=== PATIENT | male | born 1945 | race Caucasian/White ===

== ENCOUNTER 2017-01-13 08:32 | Day surgery (SDC) | payer MEDICARE, BC ==
--- NOTE | ~2017-01-13 | EGD ---
EGD REPORT [facility] [address] [id number] NAME: ZORA SIERRA : [birth year] STATUS : REG [facility]#: [id number] AGE: 72 ADM/REG DATE : 01/13/17 MR#: [id number] REPORT SERV DATE: 01/13/17 DICTATED BY: DATE: REPORT STATUS : Draft TRANSCRIBED BY: [employer] DATE: 01/13/17 [facility] Patient Name: Zora Sierra Date of : 1945 Attending MD: ANIBAL ROGERS MD Procedure Date No Time: 01/13/2017 Procedure: Colonoscopy Indications: High risk colon CA surveillance: Personal history multiple (3 or more) adenomas Referring MD: MARY CHARLES Medicines: Monitored Anesthesia Care Complications: No immediate complications. Procedure: Pre-Anesthesia Assessment: - ASA Grade Assessment: III - A patient with severe systemic disease. After I obtained informed consent, the scope was passed under direct vision. Throughout the procedure, the patient's blood pressure, pulse, and oxygen saturations were monitored continuously. The PCF [id number] was introduced through the anus and advanced to the cecum, identified by appendiceal orifice and ileocecal valve. The colonoscopy was performed without difficulty. The patient tolerated the procedure well. The quality of the bowel preparation was good. Findings: The perianal and digital rectal examinations were normal. Multiple small and large-mouthed diverticula were found in the sigmoid colon and in the descending colon. A sessile polyp was found in the cecum. The polyp was small in size. The polyp was removed with a cold snare. Resection and retrieval were complete. A sessile polyp was found in the ascending colon. The polyp was small in size. The polyp was removed with a cold snare. Resection and retrieval were complete. A sessile polyp was found in the distal transverse colon. The polyp was small in size. The polyp was removed with a cold snare. Resection and retrieval were complete. Two sessile polyps were found in the rectum. The polyps were small in size. These polyps were removed with a cold snare. Resection and retrieval were complete. No other significant abnormalities were identified in a careful examination of the remainder of the colon. There is no endoscopic evidence of inflammation, mass, ulcerations or angioectasia in the entire colon. EGD REPORT [place] [id number] [facility] [place]. [address] NAME: ZORA SIERRA : [birth year] STATUS : REG [facility]#: [id number] AGE: 72 ADM/REG DATE : 01/13/17 MR#: [id number] REPORT SERV DATE: 01/13/17 DICTATED BY: DATE: REPORT STATUS : Draft TRANSCRIBED BY: [employer] DATE: 01/13/17 No additional abnormalities were found on retroflexion. Impression: - Diverticulosis in the sigmoid colon and in the descending colon. - One small polyp in the cecum. Resected and retrieved. - One small polyp in the ascending colon. Resected and retrieved. - One small polyp in the distal transverse colon. Resected and retrieved. - Two small polyps in the rectum. Resected and retrieved. Recommendation: - Patient has a contact number available for emergencies. The signs and symptoms of potential delayed complications were discussed with the patient. Return to normal activities tomorrow. Written discharge instructions were provided to the patient. - High fiber diet. - Discharge patient to home. - Continue present medications. - Await pathology results. - Repeat colonoscopy in 3 - 5 years for surveillance based on pathology results. Procedure Code(s): --- Professional --- 35627, Colonoscopy, flexible, proximal to splenic flexure; with removal of tumor(s), polyp(s), or other lesion(s) by snare technique Diagnosis Code(s): --- Professional --- K57.30, Diverticulosis of large intestine without perforation or abscess without bleeding K62.1, Rectal polyp D12.3, Benign neoplasm of transverse colon D12.2, Benign neoplasm of ascending colon D12.0, Benign neoplasm of cecum Z86.010, Personal history of colonic polyps CPT copyright 2013 [employer]. All rights reserved. The codes documented in this report are preliminary and upon sales mgr review may be revised to meet current compliance requirements. ANIBAL ROGERS MD 01/13/2017 10:28 AM This report has been signed electronically. EGD REPORT [facility] [address] [id number] NAME: KYLEZORA MARRERO : [birth year] STATUS : REG [facility]#: [id number] AGE: 72 ADM/REG DATE : 01/13/17 MR#: [id number] REPORT SERV DATE: 01/13/17 DICTATED BY: DATE: REPORT STATUS : Draft TRANSCRIBED BY: [employer] DATE: 01/13/17 Number of Addenda: 0 Note Initiated On: 01/13/2017 9:56 AM Scope Withdrawal Time 0 hours 14 minutes 43 seconds [address] [facility] [address] [address]
[~2017-01-13 08:32] MED LIST: ASAB PO; BRILINTA90 MG PO; BUSPAR15 M1 PO; CALCIUM; CO Q-10100 MG PO; COZAAR100 MG PO; FISH OIL300 MG PO; FLOMAX4 PO; GLUCOPHXR7 PO; GLUCPH PO; KLONO1 PO; LIPITOR10 PO; LOP25 PO; MELA3 PO; NORV10 PO; OMEGA-3 KRILL PO; PRILOSEC40 MG PO; PROTONIX PO; VIT B-SIX 50 MG50 MG PO; VITAMIN D3 PO; VITC500 PO
== END 2017-01-13 23:59 | disposition home or self-care (01) ==
LOC: DMU 08:32
PROVIDERS: Internal Medicine Gastroenterology
PROC: 0DBP8ZZ Excision of Rectum, Via Natural or Artificial Opening Endoscopic (ICD-10-PCS; 2017-01-13)
PROC: 0DBL8ZZ Excision of Transverse Colon, Via Natural or Artificial Opening Endoscopic (ICD-10-PCS; 2017-01-13)
PROC: 0DBK8ZZ Excision of Ascending Colon, Via Natural or Artificial Opening Endoscopic (ICD-10-PCS; 2017-01-13)
PROC: 0DBH8ZZ Excision of Cecum, Via Natural or Artificial Opening Endoscopic (ICD-10-PCS; principal; 2017-01-13 10:30)
DX: Z12.11 Encounter for screening for malignant neoplasm of colon (principal); D12.2 Benign neoplasm of ascending colon; D12.0 Benign neoplasm of cecum; D12.3 Benign neoplasm of transverse colon; D12.8 Benign neoplasm of rectum; K57.30 Diverticulosis of large intestine without perforation or abscess without bleeding; I10 Essential (primary) hypertension; E11.9 Type 2 diabetes mellitus without complications; Z86.010 Personal history of colon polyps; Z79.899 Other long term (current) drug therapy; Z79.84 Long term (current) use of oral hypoglycemic drugs; Z79.82 Long term (current) use of aspirin
CPT/HCPCS: 82962; 88305